=== PATIENT | female | born 1970 | race Two or more races ===

== ENCOUNTER 2019-06-18 05:00 | Day surgery (SDC) | payer OTHER ==
[2019-06-18] MEDS ORDERED: PERCOCET 5-3251 EACH PO (09:48)
[2019-06-18] MEDS ORDERED: POLY119PG PO (09:48)
[2019-06-18] MEDS ORDERED: NEURONTIN800 MG PO (09:49)
== END 2019-06-18 13:20 | disposition home or self-care (01) ==
LOC: CIR.AMB 05:00
DX: K80.10 Calculus of gallbladder with chronic cholecystitis without obstruction (principal); K42.0 Umbilical hernia with obstruction, without gangrene; K43.0 Incisional hernia with obstruction, without gangrene

== ENCOUNTER 2025-01-12 16:27 | Emergency (ER) | payer OTHER ==
[~2025-01-12] VITALS: Ht 157.5 cm; Wt 51.7 kg
[~2025-01-12 16:27] MED LIST: NEURONTIN800 MG PO; PERCOCET 5-3251 EACH PO; POLY119PG PO
[2025-01-12] MEDS ORDERED: FUROSEMIDE40 MG (16:42)
[2025-01-12] MEDS ORDERED: SPIRONOLACTONE50 MG (16:43)
[2025-01-12 18:16] LABS: HEMATOCRIT 31.9 % (36.0-45.00); HEMOGLOBIN 10.9 g/dL (12.0-15.00); MEAN CELL VOLUME 98.8 fL (80.00-100.00); MEAN CORPUSCULAR HEMOGLOBIN 33.9 pg (27.00-32.0); MEAN CORPUSCULAR HGB CONC 34.3 g/dl (32.0-36.0); RED BLOOD COUNT 3.22 M/uL (4.00-6.00)
[2025-01-12 18:17] LABS: PLATELET COUNT 85 K/uL (150-450); RED CELL DISTRIBUTION WIDTH 17.8 % (11.5-14.5)
[2025-01-12 18:18] LABS: PH,URINE 6.5 (5.0-8.0); URINE APPEARANCE Clear; URINE BILIRRUBIN Negative (NEGATIVE); URINE BLOOD Negative; URINE COLOR Yellow; URINE GLUCOSE Negative (NEGATIVE); URINE KETONE Negative (NEGATIVE); URINE LEUKOCYTE Negative; URINE NITRATE Negative; URINE PROTEIN Negative (NEGATIVE)
[2025-01-12 18:19] LABS: URINE BACTERIA 64.8 uL (0.0-1933); URINE EPITHELIAL CELLS 11.2 uL (0.0-38.8); URINE RBC 2.5 uL (0.0-20.8)
[2025-01-12 18:27] LABS: INR 2.16; PARTIAL THROMBOPLASTIN TIME 34.1 SECONDS (22.0-34.0)
[2025-01-12 18:32] LABS: ALBUMIN 2.2 gm/dL (3.4-5.0); BILIRUBIN,CONJUGATED 6.82 mg/dL (0.0-0.2); BILIRUBIN,UNCONJUGATED 4.46 mg/dL (0.0-0.6); COVID-19 AG NEGATIVE (NEGATIVE); CREATININE SERUM 0.56 mg/dL (0.55-1.02); GFR 112.81; GLOBULINA 4.5 G/DL (2.4-3.5); POTASSIUM 3.03 mEq/L (3.5-5.1); TOTAL PROTEIN 6.7 gm/dL (6.4-8.2)
[2025-01-12 18:34] LABS: URINE WBC 0.3 uL (0.0-23.2)
[2025-01-12 18:35] LABS: INFLUENZA A AG NEGATIVE (NEGATIVE)
[2025-01-12 18:36] LABS: PROTHROMBIN TIME 22.2 SECONDS (9.0-11.5)
[2025-01-12 18:41] LABS: BILIRUBIN TOTAL 11.28 mg/dL (0.3-1.2)
[2025-01-12 19:32] LABS: AMYLASE 34 U/L (25-115); LIPASE 41 U/L (13-75)
[2025-01-12] MEDS ORDERED: FUROsemide 20 MG/2 ML VIAL IV ONE (23:15)
[2025-01-13] MEDS ORDERED: FUROsemide 20 MG/2 ML VIAL ONE (00:53)
[2025-01-13 07:22] VITALS: BP 102/64; O2SAT 99
[2025-01-13] MEDS ORDERED: PIPERACILLIN/TAZOBACTAM SODIUM 3.375 GM VIAL IV STA (07:34)
[2025-01-13] MEDS ORDERED: PIPERACILLIN/TAZOBACTAM SODIUM 3.375 GM VIAL IV ONE (07:53)
[2025-01-13] MEDS ORDERED: SPIRONOLACTONE 50 MG TABLET PO SCH (09:00)
== END 2025-01-13 10:14 | disposition home or self-care (01) ==
LOC: ER 16:28
PROVIDERS: Emergency Medicine; General Practice
DX: K70.31 Alcoholic cirrhosis of liver with ascites (principal); R16.1 Splenomegaly, not elsewhere classified; Z85.038 Personal history of other malignant neoplasm of large intestine; Z20.822 Contact with and (suspected) exposure to COVID-19